=== PATIENT | male | born 1960 | race Caucasian/White ===

== ENCOUNTER 2017-12-08 06:47 | Day surgery (SDC) | payer OTHER, BC ==
[2017-11-29 10:05] VITALS: BMI 33.8
[2017-12-08] MEDS ORDERED: PROPOFOL 20 ML ONE (07:06)
[2017-12-08] MEDS ORDERED: SUCCINYLCHOLINE CHLORIDE 200 MG/10 ML VIAL ONE (07:06)
[2017-12-08] MEDS ORDERED: MIDAZOLAM HCL 2 MG/2 ML SINGLE DOSE VIAL ONE ×2 (07:14→07:15)
[2017-12-08] MEDS ORDERED: BUPIVACAINE HCL/PF (5 MG/ML) 30 ML VIAL IJ ONE (07:15)
[2017-12-08] MEDS ORDERED: DEXAMETHASONE SOD PHOSPHATE/PF 10 MG/ML SDV ONE (07:15)
[2017-12-08] MEDS ORDERED: ONDANSETRON 4 MG/2 ML VIAL IVPUSH PRN (07:26)
[2017-12-08] MEDS ORDERED: PROMETHAZINE HCL 25 MG/1 ML VIAL IVPUSH PRN (07:26)
[2017-12-08] MEDS ORDERED: oxyCODONE HCL 5 MG TABLET PO PRN (07:26)
--- NOTE | 2017-12-08 10:29 | OP ---
Operative Note - Note: Operative Date: 12/08/17 Pre-Operative Diagnosis: right ankle bimalleolar fracture Operation: right ankle ORIF Implants: arthrex distal fibular plate 3.5mm nonlocking and 2.7mm locking screws. 4.0 cannulated screw (arthrex) Surgeon: Randy Henning Mat Machine Operator: Willy Valdez Anesthesiologist/MARKETING OFFICER: Connor Page Anesthesia: Spinal
--- NOTE | 2017-12-08 12:11 | OP ---
DATE OF OPERATION: 12/08/2017 PREOPERATIVE DIAGNOSIS: Right ankle bimalleolar ankle fracture. POSTOPERATIVE DIAGNOSIS: Right ankle bimalleolar ankle fracture. PROCEDURE: Right ankle open reduction and internal fixation. SURGEON: Randy Almonte MD YARN SORTER: Willy Valdez MD, whose skillful assistance was necessary for the safe and time the performance of this procedure. was able to help provide limb positioning, retraction, assisted in fracture reduction, stabilization and fixation. This is while the OR staff was involved in manipulating and passing complex instrumentation. ANESTHESIA: Spinal plus regional. POSTOPERATIVE CONDITION: Stable. COMPLICATIONS: None. IMPLANTS: Arthrex distal fibular plate with associated non-locking 3.5-mm and locking 2.7-mm screws. There was also one 4.0-mm cannulated cancellous screw medially. INDICATION FOR PROCEDURE: He is a 57-year-old gentleman who had suffered a bimalleolar right ankle fracture. Initially, conservative care was pursued to allow for resolution of swelling. As the skin condition improved, he was indicated for open reduction and internal fixation. Treatment options including nonoperative treatment with malunion and posttraumatic arthrosis versus operative reduction with open reduction and internal fixation was discussed. Operative risks were reviewed in detail including bleeding, infection, neurovascular injury, need for further surgery, postoperative pain and stiffness, nonunion, malunion, hardware failure, and cutout. We discussed medical risks such as heart attack, stroke, DVT, PE, and . We discussed the perioperative use of antibiotic and DVT prophylaxis. We reviewed the recovery protocol including nonweightbearing after surgery. I addressed all the patient's and his 's questions. They voiced understanding and elected to proceed. DESCRIPTION OF PROCEDURE: The patient was brought to the operating room after administration of a regional block in the preoperative holding area. Patient was then administered spinal anesthetic in the operative theater. The right lower extremity was then prepped and draped in usual sterile fashion. A preoperative dose of antibiotics given and the usual timeout procedure was performed. The incision was now planned out laterally over the fibula. The incision was then carried down through skin to subcutaneous tissue. Blunt spreading was used to expose the periosteum. This was then split in line with its fibers, exposing the fracture site. Any soft callus was now debrided. The fracture site was freed of any other debris. There was moderate comminution noted anteriorly. Utilizing a fracture reduction forceps, the fracture was brought into anatomic reduction. A lag screw was not possible due to the comminution anteriorly. A plate was now chosen and slid under the fracture reduction clamp. This was then affixed to the bone proximally using a 3.5-mm cortical screw. Plate placement and fracture reduction were verified fluoroscopically at this time. Both were satisfactory. At this point, the plate was fixed proximally utilizing 2 threaded 3.5-mm cortical screws. Distally, the 2.7 locking screws were inserted. At this point, the entire construct was examined both visually and fluoroscopically. Both fracture reduction and hardware placement were satisfactory. Attention was now turned medially. Here, the medial malleolar fragment was mostly reduced based on the alignment of the lateral side. In order to compress along the fracture site, a guidewire was placed percutaneously onto the tip of the medial malleolus, aiming just posterior to try to reduce it as it was sitting 1-2 mm more anterior than it should be. The guidewire was then fired up into the tibial shaft. Guidewire placement was confirmed fluoroscopically in 2 planes. The cortex was then drilled using the cannulated drill bit. A 4.0 cannulated screw was then placed across the fracture site and used to compress the fracture site, securing the fragment in satisfactory reduction. Given the proper alignment and stability, no further fixation was felt necessary. At this point, the wounds were copiously irrigated. Initially, a layered closure was attempted laterally. However, given the friability of the tissues at this point in the healing process, it was decided to use a vertical mattress, layered closure, following by a running 4-0 nylon to seal the skin. Medially, 1 single 3-0 nylon suture was placed in horizontal mattress fashion. The wounds were then sterilely dressed. The patient was placed into a well- padded short-leg cast which was then bivalved. He was transferred to recovery room in stable condition. RANDY ALMONTE M.D. [id number] MTDD
[2017-12-08 16:49] VITALS: TEMP 98.6
[2017-12-08 16:57] VITALS: BP 128/67; PULSE 116
== END 2017-12-08 16:30 | disposition home or self-care (01) ==
LOC: FASU 06:47
PROVIDERS: ATTEND Orthopaedic Surgery Sports Medicine
PROC: 0QSG04Z Reposition Right Tibia with Internal Fixation Device, Open Approach (ICD-10-PCS; 2017-12-08)
PROC: 0QSJ04Z Reposition Right Fibula with Internal Fixation Device, Open Approach (ICD-10-PCS; principal; 2017-12-08 08:57)
DX: S82.841A Displaced bimalleolar fracture of right lower leg, initial encounter for closed fracture (principal); X58.XXXA Exposure to other specified factors, initial encounter; Y93.9 Activity, unspecified; Y92.9 Unspecified place or not applicable
CPT/HCPCS: 73610-TC-RT-FY; 82962; 94760